=== PATIENT | female | born 1950 | race Caucasian/White ===

== ENCOUNTER 2024-12-31 13:59 | Emergency (ER) | payer SELFPAY ==
[2024-12-31 14:04] VITALS: BP 179/74; PULSE 70; RESP 18; TEMP 37; O2SAT 97
--- NOTE | 2024-12-31 14:14 | ED.C_ITS ---
HPI - Psych General: Chief Complaint: Psychiatric Symptoms Stated Complaint: MHE Time Seen by Provider: 12/31/24 14:12 History of Present Illness: 74-year-old female presents emergency ro om from crisis stabilization refilled her medications. On she was seen in crisis and refilled her escitalopram at 10 mg daily I refill her vaccine 75 mg daily. However since receiving that she has been taking the venlafaxine 1 pill 4 times a day with the appropriate dose. She is set because it was not refilled at the level she thought it should have been on a daily basis she says she has been taking that higher dose for several decades. Related Data Home Medications ?Medication ?Instructions ?Recorded ?Confirmed escitalopram oxalate 10 mg tablet 10 mg PO DAILY 12/1812/31/24 venlafaxine 75 mg tablet,extended 75 mg PO DAILY 12/1812/31/24 release 24 hr acetaminophen 500 mg tablet 1,000 mg PO QID PRN Fever Or Pain 12/31/24 12/31/24 (Tylenol Extra Strength) Previous Rx's ?Medication ?Instructions ?Recorded venlafaxine 150 mg 150 mg PO BID #60 caps 12/31 capsule,extended release 24 hr Allergies Allergy/AdvReac Type Severity Reaction Status Date / Time No Known Allergies Allergy Verified 12/31/24 14:09 Review of Systems Const: Denies: fever(s) or chills Card: Denies: chest pain Resp: Denies: dyspnea GI: Denies: abdominal pain : Denies: dysuria, urinary frequency or urinary urgency Musc: Denies: neck pain or back pain Skin/Breast: Denies: rash Physical Exam Const: GENERAL APPEARANCE: cooperative ORIENTATION/CONSCIOUSNESS: Yes awake, Yes oriented to person, Yes oriented to place and Yes oriented to time HENMT: COMMON NORMALS: normocephalic, atraumatic and hearing grossly normal bilaterally HEAD & SCALP: normocephalic and atraumatic Resp: COMMON NORMALS: normal respiratory effort, No retractions, No use of accessory muscles and clear to auscultation bilaterally AUSCULTATION: clear to auscultation bilaterally Cardio: COMMON NORMALS: regular rate, regular rhythm and No murmurs present (Cardio) RATE: regular rate RHYTHM: regular rhythm Extremity: COMMON NORMALS: normal to inspection, capillary refill normal, no clubbing, cyanosis or edema, no calf tenderness and no pedal edema Neuro: SENSORIUM/ORIENTATION: Yes oriented to person, Yes oriented to place and Yes oriented to time Psych: MOOD & AFFECT: Yes anxious and Yes tearful Skin: COMMON NORMALS: no rashes or lesions noted GENERAL SKIN EXAM: no rashes or lesions noted Course Vital Signs: Vital signs: Vital Signs Temperature 98.6 F 12/31/24 14:04 Pulse Rate 70 12/31/24 14:04 Respiratory Rate 18 12/31/24 14:04 Blood Pressure 179/74 12/31/24 14:04 Pulse Oximetry 97 12/31/24 14:04 Oxygen Delivery Me thod Room Air 12/31/24 14:04 MDM - Psych Medical Decision Making Discussed with Dr. Amin he was able to review the notes from [facility]. Patient at this point has actually been taking 75 mg tablets of venlafaxine 4 times a day so she is nearly out. Her anxiety and her major because of tearfulness right now is a potential of not having the medications. She is very forward thinking and that she is wanting to make sure she is able to maintain herself and or maintain her composure so that she can care for her who has all [address] Amin he recommends stopping the escitalopram since it is at a low dose and she is on such a high dose of venlafaxine. He also recommend changing 250 mg tablets of extended release taking that twice a day. Went over this very carefully with the patient she was able to repeat back to me that she understood the change in the medication. Discussed with her why we are having her stop the escitalopram and continuing the dose that she currently is on the venlafaxine she is comfortable this at this time. I gave her a months worth and encouraged her to follow-up through [facility] so that ongoing they can refill her medications. Medical Records I reviewed the patient's medical records. Lab Data I reviewed the patient's lab results. All radiology interpretation(s) finalized by discharge Discharge Plan Discharge Patient Disposition: Home Clinical Impression: Depression Condition: Stable Prescriptions: New venlafaxine 150 mg capsule,extended release 24hr 150 mg PO BID Qty: 60 0RF No Action venlafaxine 75 mg Tablet Extended Release 24hr 75 mg PO DAILY escitalopram oxalate 10 mg Tablet 10 mg PO DAILY acetaminophen [Tylenol Extra Strength] 500 mg Tablet 1,000 mg PO QID PRN (Reason: Fever Or Pain) Discharge Orders: Discharge ED (Routine); Ordered 12/31/24 Ordered By: Bernard Mosqueda Discharge Diet: Usual diet Discharge Activity: Resume usual activity Patient Instructions: Opioid Safety, Pain Management Activity Restrictions/Additional Instructions: Thank you for choosing [facility] for your healthcare needs today. It is very important that you follow up as instructed or that you return to the Emergency Department should you have concerns or if your condition changes or worsens in any way. You are seen in the emergency room complaints of depression. We reviewed your history and I discussed with the on-call psychiatrist. Since you have continued to take a total of 300 mg of venlafaxine per day we recommend you continue that at 150 mg extended release tablets 1 pill twice a day. You are given a months worth today. You should follow-up with [facility] for ongoing refills of your medicines. Since you are taking such a high dose of venlafaxine we recommend that you stop the escitalopram. The dose is rather small and may increase the chance of complications while taking such a high dose of venlafaxine. Print Language: Georgian Coding Level of Care Code ED [employer] Remover for Justin Roldan
--- NOTE | 2024-12-31 14:26 | PC.PHAR ---
Patient states she was recently prescribed Escitalopram oxalate 10mg once daily and Venlafaxine 75mg once daily . Patient states she use to take Venlafaxine 75mg qid, and with the 1 time a day it wasn't working for he so she has been increasing them . She picked up the medication 12/18/24 and she has today 12/31 only 2 left in her bottle.
[2024-12-31 15:17] VITALS: BP 151/86; PULSE 75; O2SAT 97
== END 2024-12-31 15:18 | disposition home or self-care (01) ==
PROVIDERS: Emergency Provider Family Medicine
DX: F32.A Depression, unspecified (principal)
CPT/HCPCS: 99283

== ENCOUNTER 2025-01-14 10:04 | Emergency (ER) | payer SELFPAY ==
[2025-01-14 10:07] VITALS: BP 135/95; PULSE 87; TEMP 36.8; O2SAT 100; BMI 20.9
[2025-01-14 11:29] LABS: Basophils # 0.1 10^3/uL (0.0-0.1); Basophils % 1.3 %; Eosinophils # 0.1 10^3/uL (0.0-0.8); Eosinophils % 0.8 %; Hematocrit 37.6 % (36-47); Lymphocytes # 1.5 10^3/uL (0.8-4.8); Lymphocytes % 20.1 %; Mean Corpuscular HGB Conc 32.2 g/dL (30-55); Mean Corpuscular Hemoglobin 29.7 pg (27-33); Mean Corpuscular Volume 92.4 fl (85-98); Mean Platelet Volume 10.4 fL (7.4-10.4); Monocytes # 0.5 10^3/uL (0.2-0.9); Monocytes % 6.7 %; Neutrophils % 70.8 %; Nucleated Red Blood Cells % 0 %; Platelet Count 251 10^3/cmm (157-399); Red Blood Count 4.07 10^6/uL (3.85-5.65); Red Cell Distribution Width 13.6 % (12.1-15.1)
[2025-01-14 11:48] LABS: Alanine Aminotransferase 9 U/L (0-33); Albumin Level 4.2 g/dL (3.5-5.2); Alkaline Phosphatase 61 U/L (35-105); Anion Gap 14.7 (5-19); Aspartate Amino Transferase 14 U/L (0-32); Blood Urea Nitrogen 12 mg/dL (8-23); Calcium 9.1 mg/dL (8.5-10.5); Carbon Dioxide 26 mmol/L (22-29); Chloride 103 mmol/L (98-107); Creatinine Clr Calc Pharmacy 56.4173; Globulin 2.2 g/dL (1.3-4.6); Glucose 98 mg/dL (65-115); Lipase 13 U/L (13-60); Osmolality Calculated 290 mOsm/kg (285-295); Potassium 3.7 mmol/L (3.5-5.1); Sodium 140 mmol/L (136-145); Total Bilirubin 0.2 mg/dL (0.15-1.2); Total Protein 6.4 g/dL (6.6-8.7)
[2025-01-14 12:11] VITALS: BP 161/86; PULSE 69; O2SAT 97
--- NOTE | 2025-01-14 12:28 | ED_ITS ---
HPI - Abdominal Pain 2 General: Chief Complaint: Abdominal Pain Stated Complaint: abd pain Time Seen by Provider: 01/14/25 11:34 History of Present Illness: 74-year-old female who presents to the e mergency room with complaint of constipation no BM in the last week she is concerned she has diverticulitis she denies any medic easy melena hematemesis coffee-ground was has some cramping pain in the left lower quadrant. Denies dysuria urgency or frequency no fever sweats or chills Associated Symptoms: Reports GI cramping; Denies chills, diarrhea, dysuria, fever(s), hematochezia, melena, nausea and vomiting Related Data Home Medications ?Medication ?Instructions ?Recorded ?Confirmed acetaminophen 500 mg tablet 1,000 mg PO QID PRN Fever Or Pain 12/31/24 01/14/25 (Tylenol Extra Strength) Previous Rx's ?Medication ?Instructions ?Recorded hydroxyzine HCl 50 mg tablet 100 mg (2 x 50 mg) PO .HS PRN 01/14/25 insomnia #60 tabs lactulose 10 gram/15 mL oral 30 ml PO Q2H PRN constipa tion 72 01/14/25 solution (Generlac) hours #1,080 mL sulfamethoxazole 800 1 tab PO DAILY 7 days #14 ta bs 01/14/25 mg-trimethoprim 160 mg tablet (Bactrim DS) venlafaxine 150 mg 150 mg PO BID #60 caps 01/14 capsule,extended release 24 hr Allergies Allergy/AdvReac Type Severity Reaction Status Date / Time No Known Allergies Allergy Verified 01/14/25 10:11 Review of Systems 2 Const: Denies: fever(s) or chills Card: Denies: chest pain Resp: Denies: dyspnea GI: Reports: abdominal pain and GI cramping; Denies: nausea, vomiting, diarrhea, hematochezia or melena : Denies: dysuria, urinary frequency or urinary urgency Musc: Denies: neck pain or back pain Skin/Breast: Denies: rash PFSH ED 2 PFSH: Medical History Psychiatric care Physical Exam 2 Const: COMMON NORMALS: no acute distress GENERAL APPEARANCE: cooperative and comfortable ORIENTATION/CONSCIOUSNESS: Yes awake, Yes oriented to person, Yes oriented to place and Yes oriented to time HENMT: COMMON NORMALS: normocephalic, atraumatic and hearing grossly normal bilaterally HEAD & SCALP: normocephalic and atraumatic Resp: COMMON NORMALS: normal respiratory effort, No retractions, No use of accessory muscles and clear to auscultation bilaterally AUSCULTATION: clear to auscultation bilaterally Cardio: COMMON NORMALS: regular rate, regular rhythm and No murmurs present (Cardio) RATE: regular rate RHYTHM: regular rhythm GI: COMMON NORMALS: Soft to palpation and No hepatosplenomegaly present A USCULTATION: Yes normoactive bowel sounds PALPATION: Yes Soft to palpation, No Tenderness to palpation present (GI), No Guarding due to palpation present (GI) and Yes No hepatosplenomegaly present Extremity: COMMON NORMALS: normal to inspection, capillary refill normal, no clubbing, cyanosis or edema, no calf tenderness and no pedal edema Neuro: SENSORIUM/ORIENTATION: Yes oriented to person, Yes oriented to place and Yes oriented to time Skin: COMMON NORMALS: no rashes or lesions noted GENERAL SKIN EXAM: no rashes or lesions noted Course 2 Vital Signs: Vital signs: Vital Signs Temperature 98.2 F 01/14/25 10:07 Pulse Rate 80 01/14/25 14:19 Blood Pressure 155/88 01/14/25 14:19 Pulse Oximetry 99 01/14/25 14:19 Oxygen Delivery Me thod Room Air 01/14/25 10:07 MDM - Abdominal Pain Medical Decision Making CTs negative shows mild constipation [place] ptosis no chemistry abnormalities discharge home with lactulose to use as needed to relieve her constipation. She also has a mild cystitis will start on Bactrim DS 1 p.o. twice daily x 7 days. There is a mention of a T11 compression fracture patient has no acute pain in that region suspect that it is old. There is no recent trauma. Lab Data 01/14/25 10:57 01/14/25 10:57 Labs/Radiology: Radiology Impressions Abdomen/Pelvis CT 01/14/25 12:28 IMPRESSION: 1. Mild compression deformity T11 vertebral body. This is probably chronic. However, if there is a history of current or recent trauma here, then this could be acute or subacute. If so, please correlate with history and point tenderness here on physical examination. 2. Probable constipation. 3. No other acute findings. 4. Additional details as above. Laboratory Results WBC 7.20 10^3/uL (3.29-11.43) 01/14/25 10:57 RBC 4.07 10^6/uL (3.85-5.65) 01/14/25 10:57 Hgb 12.10 g/dL (11.27-16.99) 01/14/25 10:57 Hct 37.6 % (36-47) 01/14/25 10:57 MCV 92.4 fl (85-98) 01/14/25 10:57 MCH 29.7 pg (27-33) 01/14/25 10:57 MCHC 32.2 g/dL (30-55) 01/14/25 10:57 RDW 13.6 % (12.1-15.1) 01/14/25 10:57 Plt Count 251 10^3/cmm (157-399) 01/14/25 10:57 MPV 10.4 fL (7.4-10.4) 01/14/25 10:57 Neut % (Auto) 70.8 % 01/14/25 10:57 Lymph % (Auto) 20.1 % 01/14/25 10:57 Hardy % (Auto) 6.7 % 01/14/25 10:57 Eos % (Auto) 0.8 % 01/14/25 10:57 Baso % (Auto) 1.3 % 01/14/25 10:57 Neut # (Auto) 5.10 10^3/uL (1.8-7.7) 01/14/25 10:57 Lymph # (Auto) 1.5 10^3/uL (0.8-4.8) 01/14/25 10:57 Hardy # (Auto) 0.5 10^3/uL (0.2-0.9) 01/14/25 10:57 Eos # (Auto) 0.1 10^3/uL (0.0-0.8) 01/14/25 10:57 Baso # (Auto) 0.1 10^3/uL (0.0-0.1) 01/14/25 10:57 Nucleated RBC % (auto) 0 % 01/14/25 10:57 Nucleated RBCs # 0.0 /100WBC 01/14/25 10:57 Sodium 140 mmol/L (136-145) 01/14/25 10:57 Potassium 3.7 mmol/L (3.5-5.1) 01/14/25 10:57 Chloride 103 mmol/L (98-107) 01/14/25 10:57 Carbon Dioxide 26 mmol/L (22-29) 01/14/25 10:57 Anion Gap 14.7 (5-19) 01/14/25 10:57 BUN 12 mg/dL (8-23) 01/14/25 10:57 Creatinine 0.8 mg/dL (0.5-0.9) 01/14/25 10:57 GFR Calculation Not Reportable 01/14/25 10:57 Glucose 98 mg/dL (65-115) 01/14/25 10:57 Calculated Osmolality 290 mOsm/kg (285-295) 01/14/25 10:57 Calcium 9.1 mg/dL (8.5-10.5) 01/14/25 10:57 Total Bilirubin 0.2 mg/dL (0.15-1.2) 01/14/25 10:57 AST 14 U/L (0-32) 01/14/25 10:57 ALT 9 U/L (0-33) 01/14/25 10:57 Alkaline Phosphatase 61 U/L (35-105) 01/14/25 10:57 Total Protein 6.4 g/dL (6.6-8.7) L 01/14/25 10:57 Albumin 4.2 g/dL (3.5-5.2) 01/14/25 10:57 Globulin 2.2 g/dL (1.3-4.6) 01/14/25 10:57 Lipase 13 U/L (13-60) 01/14/25 10:57 Urine Color Yellow (Yellow) 01/14/25 13:15 Urine Appearance Cloudy (CLEAR) A 01/14/25 13:15 Urine pH 6.0 (5-7) 01/14/25 13:15 Ur Specific [place] 1.018 (1.005-1.030) 01/14/25 13:15 Urine Protein Negative (Negative) 01/14/25 13:15 Urine Glucose (UA) Negative (Normal) 01/14/25 13:15 Urine Ketones Trace (Negative) 01/14/25 13:15 Urine Blood Negative (Negative) 01/14/25 13:15 Urine Nitrate Negative (Negative) 01/14/25 13:15 Urine Bilirubin Negative (Negative) 01/14/25 13:15 Urine Urobilinogen 1.0 mg/dL (Negative) 01/14/25 13:15 Ur Leukocyte Esterase 2+ (Negative) A 01/14/25 13:15 Urine RBC 0-2 /hpf (0-2) 01/14/25 13:15 Urine WBC 21-50 /hpf (0-5) H 01/14/25 13:15 Ur Squamous Epith Cells 0-5 /hpf (0-5) 01/14/25 13:15 Amorphous Sediment Not Reportable 01/14/25 13:15 Urine Bacteria Exceeds /hpf (NONE) 01/14/25 13:15 Hyaline Casts 2.61 /lpf 01/14/25 13:15 All radiology interpretation(s) finalized by discharge Discharge Plan Discharge Patient Disposition: Home Clinical Impression: Constipation, Cystitis Condition: Stable Prescriptions: New lactulose [Generlac] 10 gram/15 mL solution 30 ml PO Q2H PRN (Reason: constipation) 3 Days Qty: 1080 0RF Rx Instructions: until desired laxative effect sulfamethoxazole-trimethoprim [Bactrim DS] 800-160 mg tablet 1 tab PO DAILY 7 Days Qty: 14 0RF No Action venlafaxine 150 mg capsule,extended release 24hr 150 mg PO BID Qty: 60 2RF hydroxyzine HCl 50 mg tablet 100 mg PO .HS PRN (Reason: insomnia) Qty: 60 2RF acetaminophen [Tylenol Extra Strength] 500 mg Tablet 1,000 mg PO QID PRN (Reason: Fever Or Pain) Discharge Orders: Discharge ED (Routine); Ordered 01/14/25 Ordered By: Bernard Mosqueda Discharge Diet: Usual diet Discharge Activity: Resume usual activity Patient Instructions: Constipation (ED), Opioid Safety, Pain Management Activity Restrictions/Additional Instructions: Thank you for choosing [facility] for your healthcare needs today. It is very important that you follow up as instructed or that you return to the Emergency Department should you have concerns or if your condition changes or worsens in any way. Print Language: Estonian Coding Level of Care Code ED P[facility] Support Specialist for Justin Roldan
--- NOTE | 2025-01-14 12:28 | CTR_ITS ---
PROCEDURE INFORMATION: Exam: CT Abdomen And Pelvis With Contrast Exam date and time: 01/14/2025 12:40 PM Age: 74 years old Clinical indication: Abdominal pain; Generalized; Lower back pain with nausea; Additional info: Abd pain TECHNIQUE: Imaging protocol: Computed tomography of the abdomen and pelvis with contrast. Radiation optimization: All CT scans at this facility use at least one of these dose optimization techniques: automated exposure control; mA and/or kV adjustment per patient size (includes targeted exams where dose is matched to clinical indication); or iterative reconstruction. Contrast material: OMNI 350; Contrast volume: 100 ml; Contrast route: INTRAVENOUS (IV); COMPARISON: No relevant prior studies available. RADIATION DOSE METRICS: Total DLP (mGy-cm): 339.8 FINDINGS: Lungs: Lung bases are clear as visualized. Liver: Normal. No mass. Gallbladder and biliary ducts: Normal. No calcified stones. No ductal dilation. Pancreas: Normal. No ductal dilation. Spleen: Normal. No splenomegaly. Adrenal glands: Normal. No mass. Kidneys and ureters: Normal. No hydronephrosis. Stomach and bowel: Surgical clips in the epigastric region. Stool burden suggests constipation. Otherwise, unremarkable. Appendix: No evidence of appendicitis. Intraperitoneal space: Unremarkable. No free air. No significant fluid collection. Vasculature: Tiny amounts of arterial calcification. Otherwise, unremarkable. Lymph nodes: Unremarkable. No enlarged lymph nodes. Urinary bladder: Unremarkable. Reproductive: Hysterectomy. Otherwise, unremarkable. Bones/joints: Moderate scoliosis. Mild compression deformity T11 vertebral body. Mild and moderate multilevel spondylosis. Otherwise, unremarkable. Soft tissues: Unremarkable visualized body wall. Otherwise, unremarkable soft tissues. CT/CT abdomen pelvis w con* [id number] IMPRESSION: 1. Mild compression deformity T11 vertebral body. This is probably chronic. However, if there is a history of current or recent trauma here, then this could be acute or subacute. If so, please correlate with history and point tenderness here on physical examination. 2. Probable constipation. 3. No other acute findings. 4. Additional details as above.
[2025-01-14] MEDS: iohexol 350 mg/mL 500 mL Btl (per mL) IV (12:44)
[2025-01-14 13:00] VITALS: BP 175/98; PULSE 77; O2SAT 100
[2025-01-14 13:30] VITALS: BP 136/86; PULSE 75; O2SAT 99
[2025-01-14 13:37] LABS: Bilirubin Urine Negative (Negative); Blood Urine Negative (Negative); Glucose Urine UA Negative (Normal); Ketones Urine Trace (Negative); Leukocyte Esterase Urine 2+ (Negative); Nitrate Urine Negative (Negative); Protein Urine Negative (Negative); Specific Gravity, Urine 1.018 (1.005-1.030); Urine Appearance Cloudy (CLEAR); Urine Color Yellow (Yellow)
[2025-01-14 13:40] LABS: Add Urine Microscopic? YES; Bacteria Urine EXCEEDS /hpf; Hyaline Casts Urine 2.61 /lpf; RBC Urine 0-2 /hpf (0-2); Squamous Epithelial Cell Urine 0-5 /hpf (0-5); WBC Urine 21-50 /hpf (0-5)
[2025-01-14 13:46] LABS: Add Urine Culture? Yes
[2025-01-14 14:19] VITALS: BP 155/88; PULSE 80; O2SAT 99
== END 2025-01-14 14:22 | disposition home or self-care (01) ==
PROVIDERS: Emergency Provider Family Medicine
DX: K59.00 Constipation, unspecified (principal); N30.90 Cystitis, unspecified without hematuria
CPT/HCPCS: 36415; 74177; 80053; 81001; 83690; 85025; 87077; 87086; 87186; 99285

== ENCOUNTER 2025-01-29 11:34 | Emergency (ER) | payer SELFPAY ==
--- NOTE | 2025-01-29 11:46 | XR_ITS ---
WS: [id number] XR KUB portable [id number] REASON FOR EXAM: constipation FINDINGS: Moderately large volume of stool retention throughout the entire colon. Gas within the rectum. No small bowel dilatation. No free air or retroperitoneal air. No organomegaly or urinary tract calculi. XR/XR KUB portable [id number] IMPRESSION: Significant volume of retained stool in the colon as above.
[2025-01-29 11:47] VITALS: PULSE 90; RESP 22; TEMP 36.7; O2SAT 95
--- NOTE | 2025-01-29 12:38 | ED.C_ITS ---
HPI - Psych 2 General: Chief Complaint: Psychiatric Symptoms Stated Complaint: constipation - mhe Time Seen by Provider: 01/29/25 12:22 History of Present Illness: 74-year-old female who presents to the e mergency room with a longer list of complaints. All of which are chronic. She has to take care of her who has severe dementia and is bedbound and she is depressed and angry about this. She has chronic dental pain and has had several teeth pulled. She says she cannot afford to go to a dentist and she has been on antibiotics and she does not think that helps but she wants to know what is going on and how to fix it. When I discussed with her that she needs to see a dentist she says she cannot afford 1. She is also been having chronic constipation. This is been going on for years but much worse over the last year. She wants to know why she is having this as well. I discussed she needs to go see a primary care physician for these chronic problems as they may be better suited in treating them and that we will attempt to treat them acutely. She says she is only lived here for 3 months and she has not managed to get in with a primary care provider so far. She denies any homicidal or suicidal ideations. No abdominal pain. No vomiting. No altered mental status. No focal motor deficits. Related Data Home Medications ?Medication ?Instructions ?Recorded ?Confirmed acetaminophen 500 mg tablet 1,000 mg PO QID PRN Fever Or Pain 12/31/24 01/29/25 (Tylenol Extra Strength) ciprofloxacin HCl 500 mg tablet 500 mg PO Q12H 5 01/29/25 cyclobenzaprine 10 mg tablet 10 mg PO BEDTIME 01/29/25 01/29/25 lactulose 10 gram/15 mL oral See Rx Instructions .Rout e .COMPLEX 01/29/25 01/29/25 solution sulfamethoxazole 800 1 tab PO BID 01/29/25 mg-trimethoprim 160 mg tablet Previous Rx's ?Medication ?Instructions ?Recorded hydroxyzine HCl 50 mg tablet 100 mg (2 x 50 mg) PO .HS PRN 01/14/25 insomnia #60 tabs venlafaxine 150 mg 150 mg PO BID #60 caps 01/14 capsule,extended release 24 hr clindamycin HCl 300 mg capsule 600 mg (2 x 300 mg) PO Q8H 10 days 01/29/25 #60 caps cyclobenzaprine 10 mg tablet 10 mg PO Q8H PRN muscle s pasm #20 01/29/25 tabs glycerin (child) 1 supp NE DAILY PRN constipa tion 01/29/25 #12 ea magnesium citrate 296 ml PO ONCE #296 mL 01/29 polyethylene glycol 3350 17 17 g PO DAILY #510 grams 0 01/29/25 gram/dose oral powder (Miralax) Allergies Allergy/AdvReac Type Severity Reaction Status Date / Time No Known Allergies Allergy Verified 01/14/25 10:11 Review of Systems 2 Narrative: Constitutional symptoms: Negative except as documented in HPI. Skin symptoms: Negative except as documented in HPI. Eye symptoms: Negative except as documented in HPI. ENMT symptoms: Negative except as documented in HPI. Respiratory symptoms: Negative except as documented in HPI. Cardiovascular symptoms: Negative except as documented in HPI. Gastrointestinal symptoms: Negative except as documented in HPI. Genitourinary symptoms: Negative except as documented in HPI. Musculoskeletal symptoms: Negative except as documented in HPI. Neurologic symptoms: Negative except as documented in HPI. Psychiatric symptoms: Negative except as documented in HPI. Endocrine symptoms: Negative except as documented in HPI. PFSH ED 2 PFSH: Medical History Psychiatric care Physical Exam 2 Narrative: EXAM NARRATIVE: General: Alert, no acute distress. Skin: Warm, dry. Head: Normocephalic, atraumatic. Neck: Supple, trachea midline. Eye: Extraocular movements are intact. Ears, nose, mouth and throat: mucosa moist. Cardiovascular: Regular, Normal peripheral perfusion. Respiratory: Lungs are clear to auscultation, respirations are non-labored, breath sounds are equal, Symmetrical chest wall expansion. Gastrointestinal: Soft, Nontender, Non distended Musculoskeletal: Normal ROM, no deformity. Neurological: Alert and oriented, No focal neurological deficit observed. Psychiatric: Cooperative, labile affect, goes from being quite angry to almost tearful at times. Denies homicidal and suicidal ideation Course 2 Vital Signs: Vital signs: Vital Signs Temperature 98.0 F 01/29/25 11:47 Pulse Rate 90 01/29/25 11:47 Respiratory Rate 22 H 01/29/25 11:47 Pulse Oximetry 95 01/29/25 11:47 Oxygen Delivery Me thod Room Air 01/29/25 11:47 MDM - Psych Medical Decision Making Medical decision making: Differential diagnosis including but not limited to and based on the above HPI, review of systems and physical exam: - patient with complaint of constipation: Small bowel obstruction. Gastroparesis. Constipation. Also evaluation for urinary retention, liver disease, renal failure. Orders placed to evaluate differential diagnosis based on the above differential, HPI and physical exam Lab Review: Laboratory results were reviewed and interpreted by myself the emergency room physician. No leukocytosis. No anemia. No renal failure. KUB: Extensive stool indicating constipation. This was reviewed and interpreted by myself the emergency room physician. I also reviewed the radiology report. I reviewed the patient's medical record. Reexamination: Patient remained stable. No increased work of breathing. No altered mental status. No focal motor deficits. Assessment and plan: Constipation Dental pain Muscle pain ? Mag citrate here in the emergency room. Home with muscle relaxers, clindamycin for a possible dental infection as she cannot see a dentist at this time. Treatment of her chronic constipation with MiraLAX for the next few months. Within acute cleanout. - Discharged home - Discussed plan with patient. Answered any questions. - Evaluation and treatment of this problem were appropriate in the emergency setting. Lab Data 01/29/25 13:51 01/29/25 13:51 Radiology Impressions KUB X-Ray 01/29/25 11:46 IMPRESSION: Significant volume of retained stool in the colon as above. Laboratory Results WBC 7.64 10^3/uL (3.29-11.43) 01/29/25 13:51 RBC 4.38 10^6/uL (3.85-5.65) 01/29/25 13:51 Hgb 12.80 g/dL (11.27-16.99) 01/29/25 13:51 Hct 39.8 % (36-47) 01/29/25 13:51 MCV 90.9 fl (85-98) 01/29/25 13:51 MCH 29.2 pg (27-33) 01/29/25 13:51 MCHC 32.2 g/dL (30-55) 01/29/25 13:51 RDW 13.3 % (12.1-15.1) 01/29/25 13:51 Plt Count 295 10^3/cmm (157-399) 01/29/25 13:51 MPV 9.3 fL (7.4-10.4) 01/29/25 13:51 Neut % (Auto) 60.5 % 01/29/25 13:51 Lymph % (Auto) 28.5 % 01/29/25 13:51 [place] % (Auto) 8.2 % 01/29/25 13:51 Eos % (Auto) 1.0 % 01/29/25 13:51 Baso % (Auto) 1.4 % 01/29/25 13:51 Neut # (Auto) 4.61 10^3/uL (1.8-7.7) 01/29/25 13:51 Lymph # (Auto) 2.2 10^3/uL (0.8-4.8) 01/29/25 13:51 [place] # (Auto) 0.6 10^3/uL (0.2-0.9) 01/29/25 13:51 Eos # (Auto) 0.1 10^3/uL (0.0-0.8) 01/29/25 13:51 Baso # (Auto) 0.1 10^3/uL (0.0-0.1) 01/29/25 13:51 Nucleated RBC % (auto) 0 % 01/29/25 13:51 Nucleated RBCs # 0.0 /100WBC 01/29/25 13:51 Sodium 137 mmol/L (136-145) 01/29/25 13:51 Potassium 4.2 mmol/L (3.5-5.1) 01/29/25 13:51 Chloride 99 mmol/L (98-107) 01/29/25 13:51 Carbon Dioxide 23 mmol/L (22-29) 01/29/25 13:51 Anion Gap 19.2 (5-19) H 01/29/25 13:51 BUN 12 mg/dL (8-23) 01/29/25 13:51 Creatinine 0.9 mg/dL (0.5-0.9) 01/29/25 13:51 GFR Calculation Not Reportable 01/29/25 13:51 Glucose 105 mg/dL (65-115) 01/29/25 13:51 Calculated Osmolality 284 mOsm/kg (285-295) L 01/29/25 13:51 Calcium 9.8 mg/dL (8.5-10.5) 01/29/25 13:51 Total Bilirubin 0.3 mg/dL (0.15-1.2) 01/29/25 13:51 AST 21 U/L (0-32) 01/29/25 13:51 ALT 13 U/L (0-33) 01/29/25 13:51 Alkaline Phosphatase 74 U/L (35-105) 01/29/25 13:51 Total Protein 7.1 g/dL (6.6-8.7) 01/29/25 13:51 Albumin 4.6 g/dL (3.5-5.2) 01/29/25 13:51 Globulin 2.5 g/dL (1.3-4.6) 01/29/25 13:51 All radiology interpretation(s) finalized by discharge Discharge Plan Discharge Patient Disposition: Home Clinical Impression: Pain, dental, Constipation, Anxiety Condition: Stable Prescriptions: New cyclobenzaprine 10 mg tablet 10 mg PO Q8H PRN (Reason: muscle spasm) Qty: 20 0RF clindamycin HCl 300 mg capsule 600 mg PO Q8H 10 Days Qty: 60 0RF glycerin (child) Suppository 1 supp NE DAILY PRN (Reason: constipation) Qty: 12 0RF magnesium citrate Solution 296 ml PO ONCE Qty: 296 0RF polyethylene glycol 3350 [Miralax] 17 gram/dose powder 17 g PO DAILY Qty: 510 0RF Rx Instructions: Take 1-2 scoops daily for the next 3 months to keep stools soft No Action venlafaxine 150 mg capsule,extended release 24hr 150 mg PO BID Qty: 60 2RF hydroxyzine HCl 50 mg tablet 100 mg PO .HS PRN (Reason: insomnia) Qty: 60 2RF cyclobenzaprine 10 mg tablet 10 mg PO BEDTIME ciprofloxacin HCl 500 mg tablet 500 mg PO Q12H MDD x5days sulfamethoxazole-trimethoprim 800-160 mg tablet 1 tab PO BID lactulose 10 gram/15 mL solution See Rx Instructions .ROUTE .COMPLEX Rx Instructions: 30 ML ORALLY EVERY 2 HOURS NEEDED FOR CONSTIPATION FOR 72 HOURS UNTIL DESIRED LAXATIVE EFFECT. acetaminophen [Tylenol Extra Strength] 500 mg Tablet 1,000 mg PO QID PRN (Reason: Fever Or Pain) Discharge Orders: Discharge ED (Routine); Ordered 01/29/25 Ordered By: Meenakshi Burks Discharge Diet: Usual diet Discharge Activity: Increase activity as tolerated Patient Instructions: Constipation (ED), Opioid Safety, Pain Management Activity Restrictions/Additional Instructions: Please follow-up with a dentist as soon as possible Please arrange for follow-up with a primary provider as soon as possible. Thank you for choosing [facility] for your healthcare needs today. Please realize this is an emergency room and that we are providing you with a medical screening exam and this may not be complete and all inclusive of all the testing and or work up that you may need to determine your ailment or severity of your illness. You have been screened and evaluated and felt safe for discharge. Health conditions do change or evolve sometimes and as such it is important that you follow up with your Primary Doctor to be re checked, 3-5 days is a general good time frame for follow up. You are always welcome to return to the ED for re assessment if your symptoms are worsening or you have new concerns urn to the ED for re assessment if your symptoms are worsening or you have new concerns Print Language: Luxembourgish Coding Level of Care Code ED [employer] for Justin Roldan
--- NOTE | 2025-01-29 12:46 | PC.PHAR ---
Pt unable to verify her home medications. Called [facility] for verification. Pt finished 2 different antibiotics last month-Cipro 500mg bid x5days and Septra ds bid x7days (wrong directions at the pharmacy showed 1 daily x7days).
[2025-01-29] MEDS: Clindamycin 150 MG/ML SDV 2mL 600 MG IM (13:21)
[2025-01-29] MEDS: magnesium citrate Btl 296 mL PO (13:24)
[2025-01-29 14:07] LABS: Basophils # 0.1 10^3/uL (0.0-0.1); Basophils % 1.4 %; Eosinophils # 0.1 10^3/uL (0.0-0.8); Hematocrit 39.8 % (36-47); Lymphocytes # 2.2 10^3/uL (0.8-4.8); Lymphocytes % 28.5 %; Mean Corpuscular HGB Conc 32.2 g/dL (30-55); Mean Corpuscular Hemoglobin 29.2 pg (27-33); Mean Corpuscular Volume 90.9 fl (85-98); Mean Platelet Volume 9.3 fL (7.4-10.4); Monocytes # 0.6 10^3/uL (0.2-0.9); Monocytes % 8.2 %; Neutrophils # 4.61 10^3/uL (1.8-7.7); Neutrophils % 60.5 %; Nucleated Red Blood Cells % 0 %; Platelet Count 295 10^3/cmm (157-399); Red Blood Count 4.38 10^6/uL (3.85-5.65); Red Cell Distribution Width 13.3 % (12.1-15.1); White Blood Count 7.64 10^3/uL (3.29-11.43)
[2025-01-29 14:23] LABS: Alanine Aminotransferase 13 U/L (0-33); Albumin Level 4.6 g/dL (3.5-5.2); Alkaline Phosphatase 74 U/L (35-105); Anion Gap 19.2 (5-19); Aspartate Amino Transferase 21 U/L (0-32); Blood Urea Nitrogen 12 mg/dL (8-23); Calcium 9.8 mg/dL (8.5-10.5); Carbon Dioxide 23 mmol/L (22-29); Chloride 99 mmol/L (98-107); Creatinine Clr Calc Pharmacy 49.1918; Globulin 2.5 g/dL (1.3-4.6); Glucose 105 mg/dL (65-115); Osmolality Calculated 284 mOsm/kg (285-295); Potassium 4.2 mmol/L (3.5-5.1); Sodium 137 mmol/L (136-145); Total Bilirubin 0.3 mg/dL (0.15-1.2); Total Protein 7.1 g/dL (6.6-8.7)
== END 2025-01-29 14:39 | disposition home or self-care (01) ==
PROVIDERS: Family Medicine; Emergency Provider Emergency Medicine
DX: K08.89 Other specified disorders of teeth and supporting structures (principal); K59.00 Constipation, unspecified; F41.9 Anxiety disorder, unspecified
CPT/HCPCS: 36415; 74018; 80053; 85025; 96372; 99284; J0736; J9999